=== PATIENT | male | born 1995 | race Caucasian/White ===

== ENCOUNTER 2019-08-29 11:03 | Emergency (ER) | payer MEDICAID ==
[~2019-08-29] VITALS: Ht 172.7 cm; Wt 122.7 kg
[2019-08-29] MEDS ORDERED: PROP20TA18 PO (11:35)
[2019-08-29] MEDS ORDERED: HYDR-3831 PO (11:35)
[2019-08-29] MEDS ORDERED: ARIP2 PO (11:35)
[2019-08-29] MEDS ORDERED: ATOR10TA84 PO (11:35)
[2019-08-29] MEDS ORDERED: GABA-531 PO (11:35)
[2019-08-29] MEDS ORDERED: FLUO-191 PO (11:35)
[2019-08-29] MEDS ORDERED: MIRT30 PO (11:35)
[2019-08-29] MEDS ORDERED: ISON100L PO (11:35)
[2019-08-29] MEDS ORDERED: NAPR-1025 PO (11:35)
[2019-08-29] MEDS ORDERED: ISON300 PO (11:37)
[2019-08-29 11:51] LABS: BASOPHILS % (AUTO) 0.7 % (0.0-2.0); EOSINOPHILS % (AUTO) 1.6 % (1.0-6.0); HEMATOCRIT 45.5 % (41-53); HEMOGLOBIN 15.4 g/dL (13.5-17.5); LYMPHOCYTES # (AUTO) 3.2 K/uL (1.0-4.8); LYMPHOCYTES % (AUTO) 27.4 % (22.0-44.0); MEAN CORPUSCULAR HEMOGLOBIN 28.5 pg (26.0-34.0); MEAN CORPUSCULAR HGB CONC 33.7 G/dL (31.0-37.0); MEAN CORPUSCULAR VOLUME 84 fL (80-100); MONOCYTES # (AUTO) 0.9 K/uL (0.1-1.0); MONOCYTES % (AUTO) 7.9 % (2.0-9.0); NEUTROPHILS # (AUTO) 7.3 K/uL (1.8-7.7); NEUTROPHILS % (AUTO) 62.4 % (40.0-70.0); PLATELET COUNT (AUTO) 268 K/uL (150-450); RED CELL DISTRIBUTION WIDTH 13.2 % (11.5-14.5)
[2019-08-29 11:55] LABS: APPEARANCE,URINE CLEAR (CLEAR); BILIRUBIN,URINE NEGATIVE (NEGATIVE); GLUCOSE, URINE (UA) NEGATIVE (NEGATIVE); KETONES,URINE NEGATIVE (NEGATIVE); LEUKOCYTE ESTERASE ,URINE NEGATIVE (NEGATIVE); NITRATE,URINE NEGATIVE (NEGATIVE); OCCULT BLOOD,URINE NEGATIVE (NEGATIVE); PH,URINE 5.5 (5.0-8.0); PROTEIN,URINE NEGATIVE (NEGATIVE)
[2019-08-29 12:11] LABS: ANION GAP 8 mmol/L (8-16); CALCIUM, TOTAL 9.3 mg/dL (8.8-10.5); CARBON DIOXIDE 28 mmol/L (22-29); CHLORIDE 103 mmol/L (98-107); CREATININE 0.85 mg/dL (0.60-1.30); GLOMERULAR FILTR. RATE CALC > 60 mL/min (>60); GLUCOSE,RANDOM 82 mg/dL (70-110); POTASSIUM 3.9 mmol/L (3.5-5.1); SODIUM SERUM 139 mmol/L (136-145); UREA NITROGEN, BLOOD 20 mg/dL (7-18)
[2019-08-29 12:17] LABS: ALANINE AMINOTRANSFERASE 34 U/L (12-78); ALBUMIN 4.1 g/dL (3.4-5.0); ALKALINE PHOSPHATASE 65 U/L (46-116); ASPARTATE AMINOTRANSFERASE 15 U/L (15-37); BILIRUBIN,TOTAL 0.3 mg/dL (0.1-1.0); LIPASE 158 U/L (73-393); TOTAL PROTEIN, SERUM 8.1 g/dL (6.4-8.2)
[2019-08-29] MEDS ORDERED: KETOROLAC TROMETHAMINE 10 MG TABLET PO ONE (13:15)
[2019-08-29 15:53] VITALS: BP 124/74
== END 2019-08-29 15:55 | disposition home or self-care (01) ==
LOC: EMS 11:05
DX: R10.11 Right upper quadrant pain (principal); R19.7 Diarrhea, unspecified; R11.0 Nausea; F41.9 Anxiety disorder, unspecified; E78.00 Pure hypercholesterolemia, unspecified; F31.9 Bipolar disorder, unspecified; F17.210 Nicotine dependence, cigarettes, uncomplicated; F15.90 Other stimulant use, unspecified, uncomplicated; F11.10 Opioid abuse, uncomplicated; Z79.899 Other long term (current) drug therapy
CPT/HCPCS: 76700